=== PATIENT | female | born 1985 | race Caucasian/White ===

== ENCOUNTER 2022-08-17 19:42 | Emergency (ER) | payer MEDICAID ==
[~2022-08-17] VITALS: Ht 160 cm; Wt 98.2 kg
[2022-08-17 19:50] VITALS: BP 130/85
[2022-08-17] MEDS ORDERED: ONDA4TAB11 SL (20:14)
--- NOTE | 2022-08-17 20:14 | ED Headache ---
General Chief Complaint: Head/Cervical Problems Stated Complaint: MIGRAINE Source: patient Exam Limitations: no limitations History of Present Illness Date Seen by Provider: Aug 17, 2022 Time Seen by Provider: 19:57 Initial Comments 37-year-old female with past medical history of Chiari malformation type I being monitored by her neurologist and is medically managed coming in due to headache. She gets chronic headaches and this feels like a typical headache for her. Started yesterday, slow onset, worsening over time. Has associated nausea but no vomiting. Denies any neck stiffness, fever, vision changes, weakness, numbness, or any other concerns. Tried ibuprofen and Tylenol for the pain. Is on her period right now. Allergies and Home Medications Allergies Coded Allergies: No Known Allergies (Verified Allergy, Unknown, 02/14/06) Patient Home Medication List Home Medication List Reviewed: Yes Review of Systems Review of Systems Constitutional: No fever Eyes: No Symptoms Reported Ears, Nose, Mouth, Throat: no symptoms reported Respiratory: no symptoms reported Cardiovascular: no symptoms reported Gastrointestinal: no symptoms reported Psychiatric/Neurological: See HPI Past Tzwynyo-Fsckuo-Hfoeey Hx Patient Social History Substance use?: No Past Medical History Surgeries: Yes Tubal Ligation Physical Exam Vital Signs Capillary Refill : Height, Weight, BMI Height: '" Weight: lbs. oz. kg; BMI Method: General Appearance: WD/WN, no apparent distress HEENT: PERRL/EOMI, normal ENT inspection, pharynx normal Neck: non-tender, full range of motion, supple, normal inspection, other (no meningismus) Cardiovascular: regular rate, rhythm, no edema, no murmur Respiratory: chest non-tender, lungs clear, normal breath sounds, no respiratory distress, no accessory muscle use Gastrointestinal: normal bowel sounds, non tender, soft; No distended, No guarding, No rebound Back: normal inspection, no CVA tenderness, no vertebral tenderness Extremities: normal range of motion, non-tender, normal inspection, no pedal edema, no calf tenderness, normal capillary refill Psychiatric: alert, oriented x 3 Crainal Nerves: normal hearing, normal speech, PERRL Coordination/Gait: normal finger to nose, normal gait Motor/Sensory: no motor deficit, no sensory deficit Skin: normal color, warm/dry Progress/Results/Core Measures Results/Orders My Orders Orders - VIDAL GONZALEZ MD Prochlorperazine Injection (Compazine In (08/17/22 20:15) Diphenhydramine Injection (Benadryl Inje (08/17/22 20:15) Ketorolac Injection (Toradol Injection) (08/17/22 20:15) Progress Progress Note : Progress Note 37-year-old female with above history coming in due to headache in the setting of chronic headaches. ABCs were intact and vitals were stable on presentation. She has no red flags and this is typical for her. Neuro exam completely normal. Considered CT imaging, but given she has had extensive work-up as an outpatient for these, likely would not be helpful. Given IM injections and discharged home in stable condition with strict return precautions Departure Impression Primary Impression: Headache Qualified Codes: G44.219 - Episodic tension-type headache, not intractable Disposition: 01 HOME, SELF-CARE Condition: Stable Departure-Patient Inst. Decision time for Depature: 20:40 Referrals: OLINDA CARIAS MD (PCP/Family) Primary Care Physician Patient Instructions: Headache, Adult ED Add. Discharge Instructions: Continue to drink plenty of fluids, take ibuprofen and/or Tylenol as needed for the headache. Nausea medicines were sent to your pharmacy if needed. Scripts Ondansetron (Ondansetron Odt) 4 Mg Tab.rapdis 4 MG SL Q6H PRN for NAUSEA/VOMITING for 5 Days, #20 TAB Prov: VIDAL GONZALEZ MD 08/17/22 Work/School Note: Work Release Form Date Seen in the Emergency Department: Aug 17, 2022 Return to Work: Aug 19, 2022 Restrictions: No Restrictions VIDAL GONZALEZ MD Aug 17, 2022 20:14
[2022-08-17] MEDS ORDERED: diphenhydrAMINE 50 MG/ML INJ (BENADRYL) IM ONE (20:15)
[2022-08-17] MEDS ORDERED: PROCHLORPERAZINE 10 MG/2ML INJ (COMPAZINE) IM ONE (20:15)
[2022-08-17] MEDS ORDERED: KETOROLAC 15 MG/ML VIAL IM ONE (20:15)
== END 2022-08-17 20:38 | disposition home or self-care (01) ==
LOC: ER FS 19:42 → EDUNIT# 19:42 → ER FS 20:38
DX: R51.9 Headache, unspecified (principal)
CPT/HCPCS: 99284

== ENCOUNTER 2023-04-15 02:04 | Emergency (ER) | payer MEDICAID ==
[~2023-04-15] VITALS: Ht 157 cm; Wt 96.0 kg
[~2023-04-15 02:04] MED LIST: ONDA4TAB11 SL
[2023-04-15 02:10] VITALS: BP 137/93
[2023-04-15] MEDS ORDERED: dexAMETHasone INJ 10 MG/ML 1 ML VIAL IM STA (02:17)
[2023-04-15] MEDS ORDERED: LIDOCAINE 2% VISCOUS 15 ML UDC PO STA (02:18)
--- NOTE | 2023-04-15 02:25 | ED General ---
General Chief Complaint: Cough/Cold/Flu Symptoms Stated Complaint: COUGH/SOA/SORE THROAT Source of Information: Patient History of Present Illness Date Seen by Provider: Apr 15, 2023 Time Seen by Provider: 02:09 Initial Comments 37 yo female presenting with complaint of a week of sore throat, cough, sinus drainage, congestion, short of breath. She reports having urgent care see her Monday and had Negative swab for strep, covid and flu. This am she woke up and felt like she was drowing with congestion in her lungs. She coughed up a "bunch of green stuff" and was breathing better but still having bad throat pain and sinus pain. She denies fever or chills. She denies smoking history or 2nd hand smoke. She denies having history of asthma or breathing problems before now. She did not get prescribed any medicine when she was seen in urgent care. She has not seen her primary care provider. Timing/Duration: 1 Week Severity: Severe Modifying Factors: worse with Other (laying flat makes her feel more short of breath) Associated Systoms: Cough; No Fever/Chills; Headaches, Malaise; No Nausea/Vomiting, No Rash, No Seizure; Shortness of Air; No Syncope Allergies and Home Medications Allergies Coded Allergies: No Known Allergies (Verified Allergy, Unknown, 02/14/06) Patient Home Medication List Home Medication List Reviewed: Yes Azithromycin (Azithromycin) 250 Mg Tablet, 250 MG PO DAILY Prescribed by: KIMMIE ARELLANO on 04/15/23 0329 Ondansetron (Ondansetron Odt) 4 Mg Tab.rapdis, 4 MG SL Q6H PRN for NAUSEA/VOMITING Prescribed by: VIDAL GONZALEZ on 08/17/222013 Review of Systems Review of Systems Constitutional: No diaphoresis, No fever; malaise EENTM: hoarseness, nose congestion, throat pain, throat swelling Respiratory: cough, phlegm, short of breath; No stridor, No wheezing Cardiovascular: No chest pain Gastrointestinal: No nausea, No vomiting Genitourinary: No dysuria Musculoskeletal: no symptoms reported Skin: no symptoms reported Psychiatric/Neurological: Anxiety Past Nkfgnhg-Retydr-Ruugsg Hx Patient Social History Tobacco Use?: No Use of E-Cig and/or Vaping dev: No Substance use?: No Immunizations Up To Date First/Initial COVID19 Vaccinat: unk Past Medical History Surgery/Hospitalization HX: Anxiety/Depression Surgeries: Yes Tubal Ligation Physical Exam Vital Signs Vital Signs - First Documented Capillary Refill : Height, Weight, BMI Height: '" Weight: lbs. oz. kg; 38.00 BMI Method: General Appearance: Other (appears to not feel well) HEENT: PERRL/EOMI, Moist Mucous Membranes; No Photophobia; Other (swelling and erythema to posterior pharynx. No exudate) Neck: Full Range of Motion, Supple Respiratory: Lungs Clear, Normal Breath Sounds, No Accessory Muscle Use, No Respiratory Distress Cardiovascular: Regular Rate, Rhythm, Normal Peripheral Pulses Gastrointestinal: Normal Bowel Sounds, No Pulsatile Mass, Non Tender, Soft Rectal: Deferred Extremity: Normal Capillary Refill, Normal Inspection, No Pedal Edema Neurologic/Psychiatric: Alert, Oriented x3 Skin: Normal Color, Warm/Dry Progress/Results/Core Measures Suspected Sepsis SIRS Temperature: Pulse: Respiratory Rate: Blood Pressure / Mean: Results/Orders Lab Results Laboratory Tests Test 04/15/23 02:11 Range/Units Influenza Type A (RT-PCR) Not Detected Not Detecte Influenza Type B (RT-PCR) Not Detected Not Detecte SARS-CoV-2 RNA (RT-PCR) Not Detected Not Detecte Group A Streptococcus Screen Not Detected NotDetected My Orders Orders - KIMMIE ARELLANO MD Covid 19 Inhouse Test (04/15/23 02:15) Rapid Strep A Screen (04/15/23 02:15) Influenza A And B By Pcr (04/15/23 02:15) Chest 1 View Ap/Pa Only (04/15/23 02:16) Dexamethasone Injection (Dexamethasone (04/15/23 02:17) Ct Sinus Complete Wo (04/15/23 02:17) Lidocaine 2% Viscous 15 Ml (Xylocaine Vi (04/15/23 02:18) Azithromycin Tablet (Azithromycin Tabl (04/15/23 03:28) Vital Signs/I&O 04/15/23 04/15/23 02:10 02:10 Temp 36.8 Pulse 73 Resp 16 B/P (MAP) 137/93 (108) Pulse Ox 98 O2 Delivery Room Air Room Air Capillary Refill : Progress Note #1: Progress Note Differential diagnosis Covid, flu, sinusitis, bronchitis, pneumonia, strep pharyngitis, viral pharyngitis. Repeat swab to check for Covid, Influenza, Rapid strep. Chest xray to look for pneumonia or lung infection. Sinus CT scan to look for sinusitis or mass. Dexamethasone 10 mg IM to help with throat pain and swelling. Viscous lidocaine to try and help with throat pain. Oxygen saturation is 100% on room air and lungs are clear. Sounds like it may be more viral type infection but will see what these tests show tonight. Progress Note #2: Progress Note Flu, Strep and Covid are all negative here as well. On m y personal review and interpretation of the 1 view chest xray there was no definite infiltrate for a pneumonia. On my personal review and interpretation of the CT sinuses I felt she had some mild thickening of the maxillary sinuses and fluid and congestion in the sphenoid sinuses. Patient reports she was doing a little better after the steroid shot and the viscous lidocaine. Unable to tell if this is viral or bacterial but will try to treat with Azithromycin for possible bacterial source and encourage mucinex and fluids to help thin out congestion and cough and drainage. Check back with clinic for continued symptoms. Diagnostic Imaging Diagonstic Imaging: Xray Plain Films/CT/US/NM/MRI: chest Reviewed: Reviewed by Me Diagonstic Imaging: CT Plain Films/CT/US/NM/MRI: other (sinuses) Comments The radiologist read the CT scan of the sinuses without IV contrast is no acute sinusitis. Nasal cavity septum showed minimal rightward deviation with contact between the turbinate and the septum. This seemed to obstruct the right nasal cavity. Read by radiologist Dr. Atrie Turner MD at [id number] and faxed at [phone] Reviewed: Reviewed Night [facility] Study, Reviewed by Me Departure Impression Primary Impression: Pharyngitis Qualified Codes: J02.9 - Acute pharyngitis, unspecified Additional Impressions: Sinusitis Qualified Codes: J01.90 - Acute sinusitis, unspecified Upper respiratory infection, acute Disposition: 01 HOME, SELF-CARE Condition: Stable Departure-Patient Inst. Decision time for Depature: 03:29 Referrals: ROSA WADSWORTH MD (PCP) Primary Care Physician KENNA HERNANDEZ APRN (Family) Primary Care Physician Patient Instructions: Sore Throat, Adult ED, Upper Respiratory Infection ED, Sinusitis, Adult ED Add. Discharge Instructions: Stay well hydrated and drink plenty of fluids. Use a humidifier at bedside to help with cough, congestion and shortness of breath. Use Mucinex to help loosen mucus and thin it out so it does not choke you so much and it will drain from your sinuses easier. Take antibiotic to try and help with sinusitis and throat pain and cough. Check back with primary care provider for continued symptoms. All discharge instructions reviewed with patient and/or family. Voiced understanding. Scripts Azithromycin (Azithromycin) 250 Mg Tablet 250 MG PO DAILY for sinusitis/pharyngitis for 4 Days, #4 TAB 0 Refills Prov: KIMMIE ARELLANO MD 04/15/23 Work/School Note: Work Release Form Date Seen in the Emergency Department: Apr 15, 2023 Return to Work: Apr 18, 2023 Restrictions: Return-No Fever (24hrs) KIMMIE ARELLANO MD Apr 15, 2023 02:24
[2023-04-15] MEDS ORDERED: AZITHROMYCIN 250 MG TABLET PO STA (03:28)
[2023-04-15] MEDS ORDERED: AZIT250T12 PO (03:29)
--- NOTE | 2023-04-15 07:16 | Diagnostic Imaging Report ---
PROCEDURE: CT sinuses without contrast TECHNIQUE: Multiple contiguous axial images were obtained through the sinuses without the use of intravenous contrast. Coronal and sagittal reformations were then performed. Auto Exposure Controls were utilized during the CT exam to meet ALARA standards for radiation dose reduction. INDICATION: Cough and sore throat with sinus drainage. FINDINGS: There is mild mucosal thickening in the maxillary sinuses bilaterally. There is moderate opacification of the ethmoid air cells both anteriorly and posteriorly. The sphenoid sinuses clear. The frontal sinuses clear. There are no air-fluid levels within any of the sinuses. Some tortuosity of the nasal septum deviated to the right. This contacts inferior turbinate obstructing the right nasal cavity. There is some mucosal thickening in the region of the osteomeatal complexes bilaterally. The globes and intraorbital structures are unremarkable. The nasopharyngeal soft tissues are symmetrical without mass effect. Visualized parotid glands are unremarkable. IMPRESSION: Mild mucosal thickening in the maxillary sinuses and ethmoid air cells without air-fluid levels. Deviation of the nasal septum which abuts the inferior turbinate on the right and results in some nasal obstruction. There is also some mucosal thickening in the region of the osteomeatal complexes bilaterally. Dictated by: Dictated on workstation # [id number]
--- NOTE | 2023-04-15 07:36 | Diagnostic Imaging Report ---
INDICATION: Cough and shortness of breath. No prior examination available for comparison. FINDINGS: The heart size, mediastinal configuration, and pulmonary vascularity are within normal limits. There is no pleural effusion, pneumothorax, or pneumonia. The osseous structures are unremarkable. IMPRESSION: No acute cardiopulmonary abnormality. Dictated by: Dictated on workstation # [id number]
== END 2023-04-15 03:35 | disposition home or self-care (01) ==
LOC: EDUNIT# 02:04 → ER FS 02:06
DX: J02.9 Acute pharyngitis, unspecified (principal); J32.0 Chronic maxillary sinusitis; Z20.822 Contact with and (suspected) exposure to COVID-19
CPT/HCPCS: 70486; 71045; 87430; 87636